=== PATIENT | female | born 1955 | race Caucasian/White ===

== ENCOUNTER 2018-06-22 05:23 | Day surgery (SDC) | payer OTHER, MEDICAID ==
[2018-06-22] MEDS ORDERED: TROP 1%/CYCLOPEN 1%/PHENYL 2% DROPS ONE (05:58)
[2018-06-22] MEDS ORDERED: MIDAZOLAM INJ 2 MG/2 ML VIAL ONE ×2 (06:36→07:18)
[2018-06-22] MEDS: PROPARACAINE 0.5% OPHTH SOL 15 ML BTTL ONE (07:15)
[2018-06-22] MEDS: LIDOCAINE 1% MPF 5 ML VIAL INJ ONE (07:21)
[2018-06-22] MEDS: BRIMONIDINE 0.2% OPHTH DROPS RIGHT_EYE ONE ×2 (07:29→07:35)
[2018-06-22] MEDS: TOBRAMYCIN SULF 0.3 % OPHT SOL 1 DROP RIGHT_EYE ONE ×2 (07:29→07:35)
[2018-06-22] MEDS: DEXAMETHASONE 0.1% OPHTH SOL 1 DROP RIGHT_EYE ONE ×2 (07:29→07:35)
== END 2018-06-22 08:51 | disposition home or self-care (01) ==
LOC: AMB 05:23
PROVIDERS: ATTEND Ophthalmology
DX: H26.9 Unspecified cataract (principal); I10 Essential (primary) hypertension; K21.9 Gastro-esophageal reflux disease without esophagitis; E66.9 Obesity, unspecified; J45.909 Unspecified asthma, uncomplicated; Z88.8 Allergy status to other drugs, medicaments and biological substances; Z91.048 Other nonmedicinal substance allergy status; Z79.899 Other long term (current) drug therapy
CPT/HCPCS: 00142; 66984; J2250

== ENCOUNTER 2018-07-06 05:30 | Day surgery (SDC) | payer OTHER, MEDICAID ==
[2018-07-06] MEDS ORDERED: TROP 1%/CYCLOPEN 1%/PHENYL 2% DROPS ONE (05:58)
[2018-07-06] MEDS ORDERED: PROPARACAINE 0.5% OPHTH SOL 15 ML BTTL ONE (05:58)
[2018-07-06] MEDS ORDERED: MIDAZOLAM INJ 2 MG/2 ML VIAL ONE ×2 (07:04→07:25)
[2018-07-06] MEDS ORDERED: PROPARACAINE 0.5% OPHTH SOL 15 ML BTTL LEFT_EYE ONE (07:27)
[2018-07-06] MEDS ORDERED: DEXAMETHASONE 0.1% OPHTH SOL 1 DROP LEFT_EYE ONE ×2 (07:42→07:53)
[2018-07-06] MEDS ORDERED: TOBRAMYCIN SULF 0.3 % OPHT SOL 1 DROP LEFT_EYE ONE ×2 (07:42→07:53)
[2018-07-06] MEDS ORDERED: LIDOCAINE 1% PF 2 ML AMP INJ ONE (07:42)
[2018-07-06] MEDS ORDERED: BRIMONIDINE 0.2% OPHTH DROPS LEFT_EYE ONE ×2 (07:43→07:53)
== END 2018-07-06 08:35 | disposition home or self-care (01) ==
LOC: AMB 05:30
PROVIDERS: ATTEND Ophthalmology
DX: H25.12 Age-related nuclear cataract, left eye (principal); I10 Essential (primary) hypertension; K21.9 Gastro-esophageal reflux disease without esophagitis; E66.9 Obesity, unspecified; J45.909 Unspecified asthma, uncomplicated; F31.9 Bipolar disorder, unspecified; Z88.8 Allergy status to other drugs, medicaments and biological substances; Z91.048 Other nonmedicinal substance allergy status; Z79.899 Other long term (current) drug therapy
CPT/HCPCS: 00142; 66984; J2250

== ENCOUNTER → 2019-07-19 | Outpatient (CLI) | payer OTHER, MEDICAID ==
--- NOTE | 2019-07-19 10:19 | RAD ---
EXAM DESCRIPTION: Hand,Left 3 Views (accession [id number]), Fingers,Left (accession [id number]) CLINICAL HISTORY: 64 years Female, PAIN IN LEFT HAND COMPARISON: None. Findings: Left hand: Osteopenia. First CMC osteophytosis. No acute fracture or dislocation is identified. Mild scattered IP joint space narrowing. No focal soft tissue swelling. No aggressive osseous erosion. Left thumb: Orthopedic screw associated with the proximal phalanx base. No hardware complication identified. IP and MCP asymmetric joint space narrowing. No acute fracture or dislocation. IMPRESSION: No evidence of acute process. Electronically signed by: Glenn Parra MD 07/19/2019 10:17 AM [facility], [place]
--- NOTE | 2019-07-19 10:19 | RAD ---
EXAM DESCRIPTION: Hand,Left 3 Views (accession [id number]), Fingers,Left (accession [id number]) CLINICAL HISTORY: 64 years Female, PAIN IN LEFT HAND COMPARISON: None. Findings: Left hand: Osteopenia. First CMC osteophytosis. No acute fracture or dislocation is identified. Mild scattered IP joint space narrowing. No focal soft tissue swelling. No aggressive osseous erosion. Left thumb: Orthopedic screw associated with the proximal phalanx base. No hardware complication identified. IP and MCP asymmetric joint space narrowing. No acute fracture or dislocation. IMPRESSION: No evidence of acute process. Electronically signed by: Glenn Parra MD 07/19/2019 10:17 AM [facility]
== END ==
LOC: RAD 09:33
PROVIDERS: ATTEND Orthopaedic Surgery
DX: M79.642 Pain in left hand (principal); M79.645 Pain in left finger(s)

== ENCOUNTER → 2020-06-14 | Outpatient (CLI) | payer OTHER, MEDICAID ==
--- NOTE | 2020-06-20 14:59 | MAM ---
EXAM DESCRIPTION: 3D Screening BILATERAL : Digital Mammography. CLINICAL HISTORY: 65 years Female ANNUAL SCREENING . No complaints. Mother and remote family history of ovarian cancer and the age 50. No family history of breast cancer. Menarche age 15. Childbirth age 16. Menopause age 29. HRT 5 or more years ago.. Lifetime risk of developing breast cancer (Tyrer-Cuzick model)(%): 4.0. COMPARISON: Bilateral screening 2-D digital mammography. October 2011. TECHNIQUE: Bilateral CC and MLO projection full-field images, digital tomosynthesis mammographic technique. Bilateral digital 2-D full-field MLO images. CAD available for 2-D images. FINDINGS: The breast parenchymal density pattern is: Scattered areas of fibroglandular density. No skin thickening or nipple retraction. Solitary microcalcifications. Axillary nodes. Vascular calcifications. Nodular densities bilaterally most likely intramammary lymph nodes. No new focal, stellate mass or density, focal asymmetry , and no suspicious microcalcifications bilaterally. Stable mammograms compared to prior study. Taking into account, differences in mammographic technique. IMPRESSION: Benign exam. BIRAD CATEGORY: 2 BENIGN FINDINGS. RECOMMENDATIONS: FOLLOW UP: Routine digital bilateral mammographic screening, one year interval from June 2020. Written communication explaining the IMPRESSION and follow-up, will be mailed to the patient and referring health care provider. According to the [employer], yearly mammograms are recommended starting at age 40 and continuing as long as a woman is in good health. Any breast change noted on a breast self-exam should be reported promptly to the patient's healthcare provider. Breast MRI is recommended for women with an approximately 20-25% or greater lifetime risk of breast cancer, including women with a strong family history of breast or ovarian cancer and women who have been treated for Hodgkin's disease. A negative mammographic report should not delay tissue diagnosis in patients with significant clinical history or physical findings. Extremely dense breast tissue limits the sensitivity of digital mammography. Electronically signed by: Cesar Jerez MD 06/20/2020 2:57 PM CDT
== END ==
LOC: MAMMO 08:05
PROVIDERS: ATTEND General Practice
DX: Z12.31 Encounter for screening mammogram for malignant neoplasm of breast (principal)